=== PATIENT | female | born 1995 | race Caucasian/White ===

== ENCOUNTER → 2017-11-24 | Outpatient (REF) | payer OTHER | LOC: M LAB REF 19:21 | DX: J02.9 Acute pharyngitis, unspecified (principal) ==

== ENCOUNTER 2023-04-05 00:09 | Emergency (ER) | payer OTHER ==
[~2023-04-05] VITALS: Ht 162.6 cm; Wt 76.8 kg
[2023-04-05 00:10] VITALS: BP_DIAS 83
[2023-04-05] MEDS ORDERED: IBUP-1022 PO (01:13)
[2023-04-05] MEDS ORDERED: AMOX500C PO (01:13)
[2023-04-05] MEDS ORDERED: KETOROLAC 60MG 2ML VIAL IM ONE (01:15)
[2023-04-05] MEDS ORDERED: AMOXICILLIN 500 MG CAP PO ONE (01:15)
[2023-04-05] MEDS ORDERED: UNRESOLVED CLARIFICATION ENTRY XX STA (01:16)
[2023-04-05 01:54] VITALS: BP_SYST 140
== END 2023-04-05 01:56 | disposition home or self-care (01) ==
LOC: M ED 00:09
DX: K08.89 Other specified disorders of teeth and supporting structures (principal)
CPT/HCPCS: 96372; 99283; J1885